=== PATIENT | female | born 1990 | race Caucasian/White ===

== ENCOUNTER 2020-04-29 14:35 | Outpatient (REF) | payer OTHER, SELFPAY ==
[2020-04-30 09:26] LABS: CT PCR NOT DETECTED (Not Detect.); NG PCR NOT DETECTED (Not Detect.)
[2020-04-30 10:04] LABS: BV Int Neg Control Negative (Negative); BV Int Pos Control Positive (Positive)
== END 2020-04-29 14:36 | disposition home or self-care (01) ==
LOC: HO.LAB 14:35
PROVIDERS: PCP Internal Medicine; Visit Provider Advanced Practice Midwife
DX: Z01.419 Encounter for gynecological examination (general) (routine) without abnormal findings (principal); Z11.3 Encounter for screening for infections with a predominantly sexual mode of transmission; Z20.2 Contact with and (suspected) exposure to infections with a predominantly sexual mode of transmission
CPT/HCPCS: 87480; 87491; 87510; 87591; 87660; 88142

== ENCOUNTER 2020-08-13 14:19 | Outpatient (REF) | payer OTHER, SELFPAY ==
[2020-08-17 14:01] LABS: Chlamydia Pneumoniae IgA <1:16 titer (<1:16); Chlamydia Pneumoniae IgG <1:64 titer (<1:64); Chlamydia Pneumoniae IgM <1:10 titer (<1:10); Chlamydia Psittaci IgA <1:16 titer (<1:16); Chlamydia Psittaci IgG <1:64 titer (<1:64); Chlamydia Psittaci IgM <1:10 titer (<1:10); Chlamydia Trachomatis IgA <1:16 titer (<1:16); Chlamydia Trachomatis IgG <1:64 titer (<1:64); Chlamydia Trachomatis IgM <1:10 titer (<1:10)
== END 2020-08-13 14:20 | disposition home or self-care (01) ==
LOC: HO.LAB 14:19
PROVIDERS: PCP Internal Medicine; Visit Provider Nurse Practitioner Family
DX: Z20.2 Contact with and (suspected) exposure to infections with a predominantly sexual mode of transmission (principal)
CPT/HCPCS: 36415; 86631; 86632

== ENCOUNTER → 2020-09-03 11:33 | Outpatient (BNVA) | payer OTHER, SELFPAY | PROVIDERS: PCP Internal Medicine; Visit Provider Advanced Practice Midwife ==

== ENCOUNTER → 2020-09-10 09:16 | Outpatient (BNVA) | payer OTHER, SELFPAY | PROVIDERS: PCP Internal Medicine; Visit Provider Advanced Practice Midwife | DX: Z30.432 Encounter for removal of intrauterine contraceptive device (principal); Z30.011 Encounter for initial prescription of contraceptive pills; F17.200 Nicotine dependence, unspecified, uncomplicated | CPT/HCPCS: 58301 ==

== ENCOUNTER → 2020-09-24 15:12 | Outpatient (BNVA) | payer OTHER, SELFPAY | PROVIDERS: PCP Internal Medicine; Visit Provider Advanced Practice Midwife ==

== ENCOUNTER 2020-11-08 10:57 | Emergency (ER) | payer OTHER, SELFPAY ==
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
[2020-11-08 11:07] VITALS: BP 134/94; BP 141/90; PULSE 80; PULSE 82; RESP 16; TEMP 37.1; O2SAT 100; O2SAT 99; BMI 20.1
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
[2020-11-08] MEDS: Acetaminophen 325 MG TABLET 650 MG PO (11:53)
--- NOTE | 2020-11-08 12:41 | PC.NURSE ---
PT EXTREMELY UPSET, CRYING WHILE WAITING FOR TESTING TO BE PERFORMED, ATIVAN ORDERED WILL MEDICATE UPON RETURN TO UNIT FROM CT SCAN
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
[2020-11-08] MEDS: LORazepam 1 MG TABLET PO (13:06)
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
[2020-11-08 14:39] VITALS: BP 106/67; PULSE 61; RESP 14; TEMP 36.5; O2SAT 99
--- NOTE | 2020-11-08 14:57 | PC.NURSE ---
CALL PLACED TO CT SCAN DEPT REQUESTING RESULTS OF NECK CT, AWAITING RETURN CALL
--- NOTE | 2020-11-08 15:13 | PC.NURSE ---
PT AGITATED RE: DELAY OF CT SCAN RESULTS, RN EXPLAINED CALL PLACED TO DEPT AWAITING RESULTS, PT GOT UP SAT AT BOTTOM OF BED AND REMOVED OWN COLLAR, Beti VALDOVINOS, GUNJAN AND THIS RN REDIRECTED PT RE: RISK OF REMOVAL PRIOR TO RESULTS,. PT WANTED TO LEAVE AMA, PT NOW STATES SHE WILL WAIT FOR RESULTS, PA UPDATED
== END 2020-11-08 15:56 | disposition home or self-care (01) ==
PROVIDERS: Emergency Provider Emergency Medicine
DX: S09.90XA Unspecified injury of head, initial encounter (principal); V43.52XA Car driver injured in collision with other type car in traffic accident, initial encounter; G89.11 Acute pain due to trauma; M54.2 Cervicalgia; M54.5 Low back pain; M25.532 Pain in left wrist; H93.93 Unspecified disorder of ear, bilateral; F41.9 Anxiety disorder, unspecified; F17.200 Nicotine dependence, unspecified, uncomplicated; Y93.89 Activity, other specified; Y92.414 Local residential or business street as the place of occurrence of the external cause; Y99.9 Unspecified external cause status
CPT/HCPCS: 70450; 72125; 73110; 99284

== ENCOUNTER → 2021-01-27 15:06 | Outpatient (BNVA) | payer OTHER, SELFPAY | PROVIDERS: PCP Internal Medicine; Visit Provider Advanced Practice Midwife ==

== ENCOUNTER → 2021-01-31 13:24 | Outpatient (BNVA) | payer OTHER, SELFPAY | PROVIDERS: Visit Provider Advanced Practice Midwife | DX: Z30.013 Encounter for initial prescription of injectable contraceptive (principal) | CPT/HCPCS: 96372; 99211 ==

== ENCOUNTER 2021-06-11 11:18 | Outpatient (REF) | payer OTHER, SELFPAY | END 2021-06-11 11:19 | disposition home or self-care (01) | LOC: HO.LNP 11:18 | PROVIDERS: Visit Provider Physician Assistant Medical | DX: N39.0 Urinary tract infection, site not specified (principal) | CPT/HCPCS: 87086 ==

== ENCOUNTER 2021-09-17 12:51 | Outpatient (REF) | payer OTHER, SELFPAY ==
[2021-09-17 16:30] LABS: CT PCR NOT DETECTED (Not Detect.); NG PCR NOT DETECTED (Not Detect.)
[2021-09-18 11:04] LABS: BV Int Neg Control Negative (Negative); BV Int Pos Control Positive (Positive)
== END 2021-09-17 12:52 | disposition home or self-care (01) ==
LOC: HO.LAB 12:51
PROVIDERS: Visit Provider Advanced Practice Midwife
DX: N76.0 Acute vaginitis (principal); B96.89 Other specified bacterial agents as the cause of diseases classified elsewhere; Z20.2 Contact with and (suspected) exposure to infections with a predominantly sexual mode of transmission
CPT/HCPCS: 87480; 87491; 87510; 87591; 87660; 99212

== ENCOUNTER 2021-09-22 14:47 | Outpatient (REF) | payer OTHER, SELFPAY ==
[2021-09-22 16:03] LABS: Syphilis Screen Nonreactive (Nonreactive)
[2021-09-23 04:15] LABS: ~HepC Num1 0.04 S/CO (0.00-0.79); ~Hepatitis C Antibody Nonreactive (Nonreactive)
[2021-09-23 04:19] LABS: HBsAGNum1 0.18 S/CO (0.00-0.99); HIV AB/AG Nonreactive (Nonreactive); HIV Num 1 0.07 S/CO (0.00-0.99); Hepatitis B Surface Antigen Negative (Negative)
== END 2021-09-22 14:48 | disposition home or self-care (01) ==
LOC: HO.LAB 14:47
PROVIDERS: PCP Internal Medicine; Visit Provider Advanced Practice Midwife
DX: Z11.4 Encounter for screening for human immunodeficiency virus [HIV] (principal); Z20.2 Contact with and (suspected) exposure to infections with a predominantly sexual mode of transmission; N76.0 Acute vaginitis; B96.89 Other specified bacterial agents as the cause of diseases classified elsewhere
CPT/HCPCS: 36415; 86780; 86803; 87340; 87389

== ENCOUNTER 2022-09-08 17:54 | Outpatient (REF) | payer OTHER, SELFPAY ==
[2022-09-08 18:59] LABS: Influenza A PCR NEGATIVE (Negative); Influenza B PCR NEGATIVE (Negative); Resp Syncy Virus RNA Qual PCR NEGATIVE (Negative); SARS COV2 PCR INHOUSE NEGATIVE (Negative)
== END 2022-09-08 17:55 | disposition home or self-care (01) ==
LOC: HO.LNP 17:54
PROVIDERS: Visit Provider Nurse Practitioner Family
DX: R09.89 Other specified symptoms and signs involving the circulatory and respiratory systems (principal); Z20.822 Contact with and (suspected) exposure to COVID-19
CPT/HCPCS: 0241U

== ENCOUNTER 2023-01-02 14:18 | Outpatient (REF) | payer OTHER, SELFPAY ==
[2023-01-02 14:39] LABS: Binax Internal Control QC Valid; Binax Now Covid-19 Ag Negative (Negative); Binax Performed by: PAULP
== END 2023-01-02 14:19 | disposition home or self-care (01) ==
LOC: HO.HMGCLDS 14:18
PROVIDERS: PCP Internal Medicine; Visit Provider Physician Assistant Medical
DX: Z20.822 Contact with and (suspected) exposure to COVID-19 (principal)
CPT/HCPCS: 87811; C9803

== ENCOUNTER 2023-02-09 12:35 | Outpatient (AMB) | payer OTHER, SELFPAY ==
--- NOTE | 2023-02-09 13:14 | MHC.OFFWIV ---
Intake Vital Signs 02/09/23 13:17 Height 5 ft 6 in BP 100/68 Blood Pressure Location Rt brachial Position Sitting Pulse 75 Pulse Source Pulse Oximeter Temp 97.2 F Temp Source Temporal Artery Scan Pulse Oximetry (%) 98 Oxygen Delivery Method Room Air Intake Visit Reasons: EST/back pain Intake Note: Pt is here c/o back pain. Pt states she was going down the stairs with a bucket of laundry when she slid down and hurt her back on Wednesday night. Patient Tobacco Use Status: Current everyday Tobacco user Allergies amoxicillin [Amoxicillin] Allergy (Unknown, Verified 02/10/23 09:21) DIARRHEA Medication List - Last Reconciled 02/10/23 by Nolan Dong MD cyclobenzaprine 10 mg PO BEDTIME meloxicam 15 mg PO DAILY ondansetron 4 mg PO TID PRN 5 days Do you need a note to return to daycare/school/sports/work: No HPI EST/back pain HPI Details Patient presents to the office for a sick visit. Complaining of lower back pain for the past week. No history of fall or trauma prior to the onset of symptoms. No urinary incontinence. No fevers or chills. Pain is worse on bending forwards or sideways. Relieve done sitting down. Pain is radiating into the gluteal area. 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 no paraspinal spasm. Back: no CVA tenderness Assessment & Plan Assessment & Plan (1) Low back pain: Code(s): M54.50 - Low back pain, unspecified Plan: Meloxicam and cyclobenzaprine called in. Toradol injection provided. Patient was advised rest. Note for work if necessary provided. Once pain symptoms subside, patient should start physical therapy. If symptoms worsen to follow-up here. Medications: New meloxicam 15 mg PO DAILY 14 tabs 0RF cyclobenzaprine 10 mg PO BEDTIME 14 tabs 0RF Coding Level of Care Code Est Pt Level 3 (12155) Diagnoses Low back pain M54.50
[2023-02-09 13:17] VITALS: BP 100/68; PULSE 75; TEMP 36.2; O2SAT 98
== END 2023-02-09 16:11 | disposition home or self-care (01) ==
PROVIDERS: PCP Internal Medicine; Visit Provider Internal Medicine
DX: M54.50 Low back pain, unspecified (principal)
CPT/HCPCS: 99213

== ENCOUNTER 2024-05-04 11:41 | Outpatient (AMB) | payer OTHER, SELFPAY ==
--- NOTE | 2024-05-04 11:47 | AM.OFFWIN_ITS ---
Intake Vital Signs 05/04/24 11:49 Height 5 ft 6 in Weight 126 lb BMI 20.3 BP 100/60 Blood Pressure Location Rt brachial Position Sitting Pulse 83 Pulse Source Pulse Oximeter Temp 98.0 F Temp Source Oral Pulse Oximetry (%) 98 Oxygen Delivery Method Room Air Intake Visit Reasons: EP coughing, sore throat, neck pain Intake Note: Patient here for cough, chest tightness, vomiting and diarrhea which all started yesterday. Patient Tobacco Use Status: Current everyday Tobacco user Allergies amoxicillin [Amoxicillin] Allergy (Unknown, Verified 05/04/24 11:49) DIARRHEA Do you need a note to return to daycare/school/sports/work: No HPI EP coughing, sore throat, neck pain HPI Details This note is constructed using voice recognition software. While every effort has been made to ensure accuracy, first assistant manager errors may have been included. The patient is a 33 year old female who presents to the clinic today with cough, body aches, and diarrhea for the past 2 days, with fever. She reports that her mother has been sick with similar symptoms, and she develop them 2 days ago. She has taken Mucinex to help the symptoms but she does not have any Tylenol or Motrin at home. She reports when she is coughing she is getting up thin clear secretions. She denies dyspnea. 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 Gender identity: Female Female Reproductive History Menstrual Age of Menarche: 13 Review of Systems Const All systems reviewed & are unremarkable except as noted in HPI and below Physical Exam Vital Signs: Last Vital Signs Temp 98.0 F 05/04/24 11:49 Pulse 83 05/04/24 11:49 BP 100/60 05/04/24 11:49 Pulse Ox 98 05/04/24 11:49 Oxygen Delivery Method Room Air 05/04/24 11:49 BMI result Body Mass Index 20.3 Const General: cooperative, healthy appearing, comfortable and no acute distress Orientation/consciousness: patient oriented x3 Limitations: no limitations HEENT Head: Yes normal to inspection Ears: hearing grossly normal bilaterally, external ears normal and TM's normal bilaterally General nose exam: Normal external nose present, Normal nares present and No nasal discharge present Face and sinus: Yes normal facial exam and Yes sinuses nontender Mouth: Normal oral and palatal mucosa present and moist mucous membranes Throat: Yes tonsils normal, Yes uvula midline and Yes posterior oropharynx abnormal (Erythema) Eyes General: appearance normal, both eyes and all related structures Neck Neck: Yes normal visual inspection Resp Effort & Inspection: normal respiratory effort, able to speak in complete sentences, Actively coughing, no respiratory distress, not tachypneic, no tripod positioning and no use of accessory muscles Auscultation: clear to auscultation bilaterally Cardio Jugular venous distension: no JVD Rate: regular rate Rhythm: regular rhythm Heart sounds: S1 normal heart sound present, S2 normal heart sound present, no click, no gallops, no murmurs and no rubs GI Inspection: Yes normal to inspection Palpation (GI): Soft to palpation and nontender Auscultation: normal bowel sounds Skin General skin exam: no rashes or lesions noted, elasticity normal and turgor normal Neuro General: patient oriented x3 Extrem General: Yes normal to inspection and Yes no clubbing, cyanosis or edema Assessment & Plan Assessment & Plan (1) URI (upper respiratory infection): Code(s): J06.9 - Acute upper respiratory infection, unspecified Qualifiers: URI type: unspecified URI Qualified Code(s): J06.9 - Acute upper respiratory infection, unspecified Plan: Viral swab obtained to rule out Covid based on symptoms. Advised mask wearing while symptomatic and quarantine per current CDC guidelines. Reviewed at home support methods including hydration, humidification, vix vapor rub, sinus rinse. Discussed treatment with antiviral therapy for covid with paxlovid including appropriate use and side effects, and need to start medication within 5 day of symptom onset, preferably within 48 hours of symptom onset. Patient wishes to decline paxlovid. Given diarrhea, advised patient to increase hydration methods. Advised follow up with worsening symptoms such as dyspnea at rest, which would require emergent evaluation. Plan See above for full details and plan. Orders: Orders SARS-CoV2/FLU/RSV Today J06.9 - Acute upper respiratory infection, unspecified Medications: New albuterol sulfate 90 mcg/actuation 1 - 2 puffs inhalation QID PRN 6.7 grams 0RF Shortness Of Breath Or Wheezing ibuprofen 400 mg PO Q8H PRN 20 tabs 0RF pain Coding Level of Care Code Est Pt Level 3 (25561) Diagnoses Upper respiratory tract infection, unspecified type J06.9 URI type: unspecified URI
[2024-05-04 11:49] VITALS: BP 100/60; PULSE 83; TEMP 36.7; O2SAT 98; BMI 20.3
== END 2024-05-04 12:59 | disposition home or self-care (01) ==
PROVIDERS: PCP Internal Medicine; Visit Provider Registered Nurse
DX: J06.9 Acute upper respiratory infection, unspecified (principal)

== ENCOUNTER 2024-05-04 11:41 | Outpatient (REF) | payer OTHER, SELFPAY ==
[2024-05-04 14:13] LABS: Influenza A PCR NEGATIVE (Negative); Influenza B PCR NEGATIVE (Negative); Resp Syncy Virus RNA Qual PCR NEGATIVE (Negative); SARS COV2 PCR INHOUSE NEGATIVE (Negative)
== END 2024-05-04 11:42 | disposition home or self-care (01) ==
LOC: HO.LNP 11:41
PROVIDERS: PCP Internal Medicine; Visit Provider Registered Nurse
DX: J06.9 Acute upper respiratory infection, unspecified (principal); R05.9 Cough, unspecified; J02.9 Acute pharyngitis, unspecified; M54.2 Cervicalgia; R07.89 Other chest pain; R11.10 Vomiting, unspecified; R19.7 Diarrhea, unspecified; F17.210 Nicotine dependence, cigarettes, uncomplicated
CPT/HCPCS: 0241U; 99212

== ENCOUNTER → 2024-05-17 11:12 | Outpatient (BNVA) | payer OTHER, SELFPAY | PROVIDERS: PCP Internal Medicine | DX: T14.8XXA Other injury of unspecified body region, initial encounter (principal); M25.511 Pain in right shoulder; M25.512 Pain in left shoulder; V87.7XXA Person injured in collision between other specified motor vehicles (traffic), initial encounter; M54.50 Low back pain, unspecified; M54.2 Cervicalgia | CPT/HCPCS: 99212 ==

== ENCOUNTER 2024-05-17 13:38 | Outpatient (AMB) | payer OTHER, SELFPAY ==
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
[2024-05-17 14:57] VITALS: BP 100/60; PULSE 60; O2SAT 98
== END 2024-05-17 15:07 | disposition home or self-care (01) ==
PROVIDERS: PCP Internal Medicine; Visit Provider Registered Nurse
DX: T14.8XXA Other injury of unspecified body region, initial encounter (principal); V87.7XXA Person injured in collision between other specified motor vehicles (traffic), initial encounter; Z04.3 Encounter for examination and observation following other accident

== ENCOUNTER 2024-08-29 12:59 | Emergency (ER) | payer OTHER, SELFPAY ==
--- NOTE | ~2024-08-29 | XR_ITS ---
EXAMINATION: XR CHEST CLINICAL INFORMATION: CP COMPARISON: None available. TECHNIQUE: 2 views of the chest were obtained. FINDINGS: The cardiac, hilar, and mediastinal contours are normal. The lungs are clear bilaterally. There is no pneumothorax or pleural effusion. There is no focal osseous or soft tissue abnormality. XR/XR chest 2V IMPRESSION: Normal chest. Electronically signed by: Jose Armando Gracia MD 08/29/2024 02:50 PM EST
--- NOTE | 2024-08-29 13:02 | ECG_ITS ---
Test Reason : chest pain Blood Pressure : */* mmHG Vent. Rate : 82 BPM Atrial Rate : 82 BPM P-R Int : 170 ms QRS Dur : 76 ms QT Int : 356 ms P-R-T Axes : 70 73 48 degrees QTcB Int : 415 ms Normal sinus rhythm Possible Left atrial enlargement Cannot rule out Anterior infarct , age undetermined Abnormal ECG When compared with ECG of 04-Nov-2008 21:28, No significant changes seen Referred By: Generic ED Physician Electronically Signed By: JOSE ELIAS ELIZALDE
[2024-08-29 13:48] VITALS: BP 134/90; PULSE 83; RESP 16; TEMP 36.9; O2SAT 100; BMI 19.6
--- NOTE | 2024-08-29 13:49 | ED.CHESTPAIN ---
HPI - Chest Pain General Chief Complaint: Chest Pain Stated Complaint: Chest Pain Related Data Previous Rx's ?Medication ?Instructions ?Recorded albuterol sulfate 90 mcg/actuation 1 - 2 puff inhalation QID PRN 05/04/24 aerosol inhaler Shortness Of Breath Or Wheezing #6.7 grams ibuprofen 400 mg tablet 400 mg PO Q8H PRN pain #20 tabs 05/04/24 cyclobenzaprine 5 mg tablet 5 mg PO Q8H PRN Muscle Spasm #10 05/17/24 tabs ibuprofen 600 mg tablet 600 mg PO Q8H PRN pain #20 tabs 05/17/24 Allergies Allergy/AdvReac Type Severity Reaction Status Date / Time amoxicillin [Amoxicillin] Allergy Unknown DIARRHEA Verified 08/29/24 13:50 PMFSH Past Medical History Medical History Depression Smoking Surgical History No pertinent past surgical history Family History Family History Maternal Aunt Ovarian cancer Maternal Grandmother Cancer Maternal Grandfather Diabetes Social History Social History Housing: Apartment Alcohol intake: current Alcohol intake frequency: holidays/special occasions only Patient Tobacco Use Status: Current everyday Tobacco user Cigarettes Per Day: 4 e-Cigarette/Vaping Use: Never Used Second Hand Smoke Exposure: Yes Advance Directives: No Advance Directives Information Provided: No Do you have a plan to hurt others: No Plan service: No Current occupational status: employed 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 RME assessment and note performed by: Elvia Agarwal PA-C This is a [id number], with no known medical problems, here with complaints of chest pain x 2 days. Pain is constant and radiates into her left shoulder. Brother from ACS in his 30s. She is not on anticoagulation. No recent travel, surgery, or hospitalizations. Plan: Labs, EKG, chest x-ray, further ER evaluation needed. Reevaluation(s) Reevaluation #1: Patient left without completing treatment. Medical Decision Making Lab Data 08/29/24 14:26 08/29/24 14:26 Labs: Lab Results 08/29/24 Range/Units 14:26 WBC 4.7 L (4.8-10.8) X10*3/uL RBC 3.92 L (4.20-5.50) X10*6/uL Hgb 12.6 (12.0-16.0) g/dl Hct 37.6 (37.0-47.0) % MCV 95.9 (80.0-98.0) fL MCH 32.1 (27.0-33.0) pg MCHC 33.5 (31.0-35.0) g/dl RDW 12.3 (11.0-16.0) % Plt Count 185 (160-400) X10*3/uL MPV 10.1 (9.4-12.3) fL Immature Gran % (Auto) 0.0 (0.0-0.4) % Neut % (Auto) 54.3 (45-73) % Lymph % (Auto) 32.3 (20-40) % Bertie % (Auto) 11.5 H (2-11) % Eos % (Auto) 1.7 (0-4) % Baso % (Auto) 0.2 (0-2) % Lymph # (Auto) 1.5 (1.2-4.9) X10*3/uL Bertie # (Auto) 0.5 (0.1-1.2) X10*3/uL Eos # (Auto) 0.1 (0.0-0.4) X10*3/uL Baso # (Auto) 0.0 (0.0-0.2) X10*3/uL Abs Immat Gran (auto) 0.00 (0.00-0.03) X10*3/uL Absolute Neuts (auto) 2.6 (2.0-8.3) x10*3/uL Absolute Nucleated RBC 0.000 (0.0-0.012) X10*3/uL Nucleated RBC % (auto) 0.0 (0.0-0.2) /100WBC PT 11.8 (10.9-12.4) SEC INR 1.0 (0.9-1.1) Sodium 141 (135-145) mmol/L Potassium 3.5 (3.3-5.1) mmol/L Chloride 108 (96-108) mmol/L Carbon Dioxide 27 (22-29) mmol/L Anion Gap 10 L (12-20) BUN 11 (9-16) mg/dL Creatinine 0.73 (0.5-1.4) mg/dL Estim Creat Clear Calc 99.9 Estimated GFR > 60 Random Glucose 79 (60-115) mg/dL Calcium 9.3 (8.4-10.2) mg/dL Magnesium 1.9 (1.6-2.6) mg/dL Total Bilirubin 0.5 (0.0-1.0) mg/dL Direct Bilirubin 0.1 (0.0-0.5) mg/dL AST 21 (5-31) U/L ALT 21 (0-31) U/L Alkaline Phosphatase 68 (39-117) U/L Troponin I High Sens < 2.7 (<3.5-17.0) ng/L Total Protein 7.6 (6.5-8.0) g/dL Albumin 4.5 (3.5-5.0) g/dL Influenza Type A (PCR) NEGATIVE (Negative) Influenza Type B (PCR) NEGATIVE (Negative) RSV RNA Qual (PCR) NEGATIVE (Negative) SARS-CoV-2 RNA (RT-PCR) NEGATIVE (Negative) Discharge Plan Discharge Clinical Impression: Chest pain Patient Disposition: Left W/O Completing Treatment Prescriptions: No Action Recombivax HB (PF) 10 mcg/mL suspension 1.0 ml IM ONCE Qty: 1 0RF albuterol sulfate 90 mcg/actuation HFA aerosol inhaler 1 - 2 puff inhalation QID PRN (Reason: Shortness Of Breath Or Wheezing) Qty: 6.7 0RF ibuprofen 400 mg tablet 400 mg PO Q8H PRN (Reason: pain) Qty: 20 0RF cyclobenzaprine 5 mg tablet 5 mg PO Q8H PRN (Reason: Muscle Spasm) Qty: 10 0RF ibuprofen 600 mg tablet 600 mg PO Q8H PRN (Reason: pain) Qty: 20 0RF Discharge Date/Time: 08/29/24 20:07
[2024-08-29 14:33] LABS: MANUAL DIFF FLAG NO
[2024-08-29 14:34] LABS: Basophils Percent Auto 0.2 % (0-2); Eosinophils Absolute Auto 0.1 X10*3/uL (0.0-0.4); Eosinophils Percent Auto 1.7 % (0-4); Hematocrit 37.6 % (37.0-47.0); Hemoglobin 12.6 g/dl (12.0-16.0); Lymphocytes Absolute Auto 1.5 X10*3/uL (1.2-4.9); Lymphocytes Percent Auto 32.3 % (20-40); Mean Corpuscular HGB Conc 33.5 g/dl (31.0-35.0); Mean Corpuscular Hemoglobin 32.1 pg (27.0-33.0); Mean Corpuscular Volume 95.9 fL (80.0-98.0); Mean Platelet Volume 10.1 fL (9.4-12.3); Monocytes Absolute Auto 0.5 X10*3/uL (0.1-1.2); Monocytes Percent Auto 11.5 % (2-11); Neutrophils Absolute Auto 2.6 x10*3/uL (2.0-8.3); Neutrophils Percent Auto 54.3 % (45-73); Platelet Count 185 X10*3/uL (160-400); Red Blood Count 3.92 X10*6/uL (4.20-5.50); Red Cell Distribution Width 12.3 % (11.0-16.0); White Blood Count 4.7 X10*3/uL (4.8-10.8)
[2024-08-29 14:44] LABS: Prothrombin Time 11.8 SEC (10.9-12.4)
[2024-08-29 14:52] LABS: Alanine Aminotransferase 21 U/L (0-31); Albumin Level 4.5 g/dL (3.5-5.0); Alkaline Phosphatase 68 U/L (39-117); Anion Gap 10 (12-20); Aspartate Amino Transferase 21 U/L (5-31); Bilirubin Direct 0.1 mg/dL (0.0-0.5); Bilirubin Total 0.5 mg/dL (0.0-1.0); Blood Urea Nitrogen 11 mg/dL (9-16); Calcium 9.3 mg/dL (8.4-10.2); Carbon Dioxide 27 mmol/L (22-29); Chloride 108 mmol/L (96-108); Creatinine Clr Calc Pharmacy 99.9; Estimated Glomerular Filt Rate > 60; Glucose Random 79 mg/dL (60-115); Magnesium 1.9 mg/dL (1.6-2.6); Potassium 3.5 mmol/L (3.3-5.1); Sodium 141 mmol/L (135-145); Total Protein 7.6 g/dL (6.5-8.0)
[2024-08-29 15:00] LABS: Troponin-I High Sensitivity < 2.7 ng/L (<3.5-17.0)
[2024-08-29 15:14] LABS: Influenza A PCR NEGATIVE (Negative); Influenza B PCR NEGATIVE (Negative); Resp Syncy Virus RNA Qual PCR NEGATIVE (Negative); SARS COV2 PCR INHOUSE NEGATIVE (Negative)
[2024-08-29 17:33] VITALS: BP 107/70; PULSE 72; RESP 20; TEMP 36.8; O2SAT 100
--- OUTSIDE RECORDS SUMMARY | 2024-08-29 19:58 | XMS_ITS | Encounter Summary ---
Author Organization [facility] Address [address] [place] [address] Phone Care Team Providers Care Evaporator Supervisor Name Role Phone Elisha Dunaway DO Primary Care Provider [phone] Encounter Details Date Type Department Care Team (Late st Contact Info) Description 04/08/2011 Documentation EM Family Medicine [address] [place] [address] Family Medicine, Physician [address] [place], [place] [phone] Social History Tobacco Use Types Packs/Day Years Used Date Smoking Tobacco: Never Assessed Comments Unknown Sex and Gender Information Value Date Recorded Sex Assigned at Not on file Legal Sex Female 4:39 PM EDT Gender Identity Not on file Sexual Orientation Not on file documented as of this encounter Plan of Treatment Not on file documented as of this encounter Visit Diagnoses Not on filedocumented in this encounter Care Teams Evaporator Supervisor Relationship Specialty Start Date End Date Elisha Dunaway DO [address] [facility] [place] [phone] PCP - General 02/19/17 10/21/22 documented as of this encounter
--- OUTSIDE RECORDS SUMMARY | 2024-08-29 19:58 | XMS_ITS | Encounter Summary ---
Author Organization [facility] Address [address] [place] [address] Phone Care Team Providers Care Sod Stripper Name Role Phone Elisha Dunaway DO Primary Care Provider [phone] Encounter Details Date Type Department Care Team (Late st Contact Info) Description 05/14/2011 Documentation EM Family Medicine [address] [place] [address] Family Medicine, Physician [address] [place], [place] [phone] Social History Tobacco Use Types Packs/Day Years [...] on filedocumented in this encounter Care Teams Sod Stripper Relationship Specialty Start Date End Date Elisha Dunaway DO [address] [facility] [place] [id number] PCP - General 02/19/17 10/21/22 documented as of this encounter
--- OUTSIDE RECORDS SUMMARY | 2024-08-29 19:58 | XMS_ITS | Clinical Summary ---
Author Organization [facility] Address [address] [place] [address] Phone Care Team Providers Care Trains Dispatcher Supervisor Name Role Phone Unavailable Primary Care Provider Unavailabl e Immunizations Immunization Administration Dates Next Due DTP 11/08/1994, 4,07/11/1993, 993 DTaP 5 12/09/1997 HPV, Quadrivalent 04/07/2011,04/21/2007 Hep B, ped/adol 07/11/1993,01/08/1993,1992 Hib (PRP-T) 11/08/1994,07/11/1993,01/08/1993 IPV 12/09/1997, 4,07/11/1993, 993 MMR 12/09/1997,02/08/1994 Meningococcal Conj (Menactra) MCV4P 04/21/2007 Tdap 07/03/2005 Varicella 04/07/2011,09/11/2002 Social History Tobacco Use Types Packs/Day Years Used Date Smoking Tobacco: Never Assessed Comments Unknown Sex and Gender Information Value Date Recorded Sex Assigned at Not on file Legal Sex Female 4:39 PM EDT Gender Identity Not on file Sexual Orientation Not on file Last Filed Vital Signs Vital Sign Reading Time Taken Comments Blood Pressure 82/60 04/07/2011 12:00 AM EDT Pulse 72 04/07/2011 12:00 AM EDT Temperature 37.8 ??C (100.1 ??F) 12/19/2010 12:00 AM EDT Respiratory Rate - - Oxygen Saturation - - Inhaled Oxygen Concentration - - Weight 49.4 kg (109 lb) 04/07/2011 12:00 AM EDT Height 166.4 cm (5' 5.5 ) 04/07/2011 12:00 AM ED T Body Mass Index 17.86 04/07/2011 12:00 AM EDT Plan of Treatment Health Maintenance Due Date Last Done Comments Consider Men B Vaccine (1 of 2 - Bexsero 2-dose series) 2008 DTaP,Tdap,and Td Vaccines (7 - Td or Tdap) 07/03/2015 07/03/2005, 12/09/1997, 11/08/1994, Additional history exists Influenza Vaccines (#1) 2024 COVID-19 Vaccine ( season) 2024 Hepatitis B Vaccines Completed 07/11/1993, 01/08/1993, 1992 HIB Vaccines Completed 11/08/1994, 06/13, 01/08/1993 IPV Vaccines Completed 12/09/1997, 01/11, 07/11/1993, Additional history exists MMR Vaccines Completed 12/09/1997, 02/08/1994 Meningococcal Vaccine Aged Out 04/21/2007 No tavon zach eligible based on patient's age to complete this topic HPV Vaccines Completed 04/07/2011, 04/21/2007 Varicella Vaccines Completed 04/07/2011, 09/11/2002 Hepatitis A Vaccines Aged Out No long er eligible based on patient's age to complete this topic Men B Vaccine Aged Out No longer elig ible based on patient's age to complete this topic Pneumococcal Vaccine Aged Out No long er eligible based on patient's age to complete this topic Procedures * Due to [place] [employer] law, this organization might not be sharing sensitive test results. Procedure Name Priority Date/Time Associated Diagnosis Comments CHLAMYDIA AND GONORRHEA, AMPLIFIED Routine 04/08/2011 2:22 PM EDT from Last 3 Months or Most Recently Relevant to Health Maintenance Results * Due to [place] [employer] law, this organization might not be sharing sensitive test results. * Chlamydia and Gonorrhoea, Amplified (04/08/2011 2:22 PM EDT) Pathologist [facility] URINE GC AMP PROBE NEGATIVE [facility] Comment: NO NEISSERIA GONORRHOEAE RNA DETECTED IN THIS PATIENT'S SAMPLE. ? (REFERENCE RANGE/NORMAL VALUE: NOT DETECTED) ? NOTE: THIS TEST USES PROOF CARRIER MEDIATED AMPLIFICATION METHOD TO DETECT rRNA FROM C.TRACHOMATIS AND N.GONORRHOEAE. A NEGATIVE RESULT DOES NOT PRECLUDE INFECTION WITH C.TRACHOMATIS OR N.GONORRHOEAE BECAUSE RESULTS ARE DEPENDENT ON ADEQUATE SPECIMEN COLLECTION, ABSENCE OF INHIBITORS, AND SUFFICIENT rRNA TO BE DETECTED. THE APTIMA COMBO2 ASSAY IS NOT INTENDED FOR THE EVALUATION OF SUSPECTED SEXUAL ABUSE OR FOR OTHER MEDICO LEGAL INDICATIONS. IS TRUE FOR ALL NON CULTURE METHODS, A POSITIVE SPECIMEN OBTAINED FROM A PATIENT AFTER THERAPEUTIC TREATMENT CANNOT BE INTERPRETED INDICATING THE PRESENCE OF VIABLE C.TRACHOMATIS OR N.GONORRHOEAE. THERAPEUTIC FAILURE OR SUCCESS CANNOT BE DETERMINED WITH THE APTIMA COMBO2 ASSAY SINCE NUCLEIC ACID MAY PERSIST FOLLOWING APPROPRIATE ANTIMICROBIAL THERAPY. A NEGATIVE URINE RESULT FOR A PATIENT WHO IS CLINICALLY SUSPECTED OF HAVING A CHLAMYDIAL OR GONOCOCCAL INFECTION DOES NOT RULE OUT THE PRESENCE OF C.TRACHOMATIS OR N.GONORRHOEAE IN THE UROGENITAL TRACT. TESTING OF AN ENDOCERVICAL(FEMALE) OR URETHRAL(MALE) SPECIMEN IS RECOMMENDED IF THERE IS HIGH CLINICAL SUSPICION OF INFECTION. PRESERVCYT LIQUID PAP AND URINE SAMPLING ARE NOT DESIGNED TO REPLACE CERVICAL EXAMS AND ENDOCERVICAL SAMPLES FOR DIAGNOSIS OF FEMALE UROGENITAL INFECTIONS. PATIENTS MAY HAVE CERVICITIS, URETHRITIS, URINARY TRACT INFECTIONS, OR VAGINAL INFECTIONS DUE TO OTHER CAUSES OR CONCURRENT INFECTIONS WITH OTHER AGENTS. URINE CHLAMYDIA AMP PROBE NEGATIVE [facility] Comment: NO CHLAMYDIA TRACHOMATIS RNA DETECTED IN THIS PATIENT'S SAMPLE. ? (REFERENCE RANGE/NORMAL VALUE: NOT DETECTED) 04/08/2011 2:22 PM EDT Narrative [facility] - 04/08/2011 2:22 PM EDT URINE CHLAMYDIA GC AMP PROBE us Elisha Dunaway DO LAB MICROBIOLOGY - GENERAL ORDER JOHN Final Result [facility] [address] [place] [address], [place] from Last 3 Months or Most Recently Relevant to Health Maintenance
--- OUTSIDE RECORDS SUMMARY | 2024-08-29 19:58 | XMS_ITS | Encounter Summary ---
Author Organization [facility] Address [address] [place] [address] Phone Care Team Providers Care Cardroom Supervisor Name Role Phone Elisha Dunaway DO Primary Care Provider [phone] Encounter Details Date Type Department Care Team (Late st Contact Info) Description 04/08/2011 Documentation EM Family Medicine [address] [place] [address] Family Medicine, Physician [address] [place], [place] [phone] Social History Tobacco Use Types Packs/Day Years [...] on filedocumented in this encounter Care Teams Cardroom Supervisor Relationship Specialty Start Date End Date Elisha Dunaway DO [address] [facility] [place] [phone] PCP - General 02/19/17 10/21/22 documented as of this encounter
--- OUTSIDE RECORDS SUMMARY | 2024-08-29 19:58 | XMS_ITS | Encounter Summary ---
Author Organization [facility] Address [address] [place] [address] Phone Care Team Providers Care Radiology Manager Name Role Phone Elisha Dunaway DO Primary Care Provider [phone] Encounter Details Date Type Department Care Team (Late st Contact Info) Description 02/25/2017 Conversion Encounter [facility] [address] [place], [place] [phone] Social History Tobacco Use Types Packs/Day Years [...] on filedocumented in this encounter Care Teams Radiology Manager Relationship Specialty Start Date End Date Elisha Dunaway DO [address] [place] [address] PCP - General 02/19/17 10/21/22 documented as of this encounter
--- OUTSIDE RECORDS SUMMARY | 2024-08-29 19:58 | XMS_ITS | Encounter Summary ---
Author Organization [facility] Address [address] [place] [address] Phone Care Team Providers Care Hospital Cleaning Specialist Name Role Phone Elisha Dunaway DO Primary Care Provider [phone] Encounter Details Date Type Department Care Team (Late st Contact Info) Description 04/08/2011 Documentation EM Family Medicine [address] [place] [address] Family Medicine, Physician [address] [place], [place] [phone] Social History Tobacco Use Types Packs/Day Years [...] on filedocumented in this encounter Care Teams Hospital Cleaning Specialist Relationship Specialty Start Date End Date Elisha Dunaway DO [address] [facility] [place] [phone] PCP - General 02/19/17 10/21/22 documented as of this encounter
--- OUTSIDE RECORDS SUMMARY | 2024-08-29 19:58 | XMS_ITS | Encounter Summary ---
Author Organization [facility] Address [address] [place] [address] Phone Care Team Providers Care Histotechnologist Supervisor Name Role Phone Elisha Dunaway DO Primary Care Provider [phone] Encounter Details Date Type Department Care Team (Late st Contact Info) Description 10/03/2009 Documentation EM Family Medicine [address] [place] [address] Family Medicine, Physician [address] [place], [place] [phone] Social History Tobacco Use Types Packs/Day Years [...] on filedocumented in this encounter Care Teams Histotechnologist Supervisor Relationship Specialty Start Date End Date Elisha Dunaway DO [address] [facility] [place] [phone] PCP - General 02/19/17 10/21/22 documented as of this encounter
== END 2024-08-29 20:07 | disposition left against medical advice (07) ==
PROVIDERS: Physician Assistant Medical; Emergency Provider Emergency Medicine; PCP Internal Medicine
DX: R07.9 Chest pain, unspecified (principal); Z03.818 Encounter for observation for suspected exposure to other biological agents ruled out; F17.210 Nicotine dependence, cigarettes, uncomplicated
CPT/HCPCS: 0241U; 71046; 80048; 80076; 83735; 84484; 85025; 85610; 93005; 99283

== ENCOUNTER → 2024-08-29 13:02 | Outpatient (BNV) | payer OTHER, SELFPAY | PROVIDERS: PCP Internal Medicine; Visit Provider Internal Medicine | DX: R94.31 Abnormal electrocardiogram [ECG] [EKG] (principal); R07.9 Chest pain, unspecified | CPT/HCPCS: 93010 ==

== ENCOUNTER → 2024-08-29 13:52 | Outpatient (BNV) | payer OTHER, SELFPAY | PROVIDERS: PCP Internal Medicine; Visit Provider Radiology Diagnostic Radiology | DX: R07.9 Chest pain, unspecified (principal) | CPT/HCPCS: 71046 ==

== ENCOUNTER 2024-09-20 12:50 | Outpatient (AMB) | payer OTHER, SELFPAY ==
--- NOTE | 2024-09-20 13:09 | AM.OFFVISNUR ---
Intake Visit Reasons: PPD Plant Allergies amoxicillin [Amoxicillin] Allergy (Unknown, Verified 08/29/24 13:50) DIARRHEA Office Meds tuberculin PPD 5 tub. unit/0.1 mL intradermal injection solution Performing Provider: Gena Whyte MD [facility] Administered by: Dora Eller RN on 09/20/24 13:09 Dose Route Admin Location Dispensed Lot Number Expiration Date [facility] Visual Designer 0.1 mL intradermal 0.1 mL [id number] 12/09/26 39920-439-29 [employer] Assessment & Plan Assessment & Plan Orders: Orders AMB PPD Planted Today Z11.1 - Encounter for screening for respiratory tuberculosis Medications: New tuberculin PPD 0.1 mL intradermal ONCE 0.1 mL 0RF Z11.1 - Encounter for screening for respiratory tuberculosis Coding
--- OUTSIDE RECORDS SUMMARY | 2024-09-20 14:53 | XMS_ITS | Encounter Summary ---
Author Organization [facility] Address [address] [place] [address] Phone Care Team Providers Care Tester Rocket Engine Name Role Phone Elisha Dunaway DO Primary Care Provider [phone] Encounter Details Date Type Department Care Team (Late st Contact Info) Description 10/03/2009 Documentation EM Family Medicine [address] [place] [address] Family Medicine, Physician [address] [place], [place] [phone] Social History Tobacco Use Types Packs/Day Years [...] on filedocumented in this encounter Care Teams Tester Rocket Engine Relationship Specialty Start Date End Date Elisha Dunaway DO [address] [facility] [place] [phone] PCP - General 02/19/17 10/21/22 documented as of this encounter
--- OUTSIDE RECORDS SUMMARY | 2024-09-20 14:53 | XMS_ITS | Clinical Summary ---
Author Organization [facility] Address [address] [place] [address] Phone Care Team Providers Care Division Superintendent Name Role Phone Unavailable Primary Care Provider [...] Health Maintenance Due Date Last Done Comments DTaP,Tdap,and Td Vaccines (7 - Td or [...] complete this topic Procedures * Due to [place] [employer] law, this organization might not be sharing sensitive test results. Procedure Name Priority Date/Time Associated Diagnosis Comments CHLAMYDIA AND GONORRHEA, AMPLIFIED Routine 04/08/2011 2:22 PM EDT from Last 3 Months or Most Recently Relevant to Health Maintenance Results * Due to [place] [employer] law, this organization might not be sharing sensitive test results. * Chlamydia and Gonorrhoea, Amplified (04/08/2011 2:22 PM EDT) Pathologist [facility] URINE GC AMP PROBE NEGATIVE [facility] Comment: NO NEISSERIA GONORRHOEAE RNA DETECTED IN THIS PATIENT'S SAMPLE. ? (REFERENCE RANGE/NORMAL VALUE: NOT DETECTED) ? NOTE: THIS TEST USES DIRECTOR OF DEVELOPMENT MEDIATED AMPLIFICATION METHOD TO DETECT rRNA FROM [...] OTHER AGENTS. URINE CHLAMYDIA AMP PROBE NEGATIVE [facility] Comment: NO CHLAMYDIA TRACHOMATIS RNA DETECTED IN THIS PATIENT'S SAMPLE. ? (REFERENCE RANGE/NORMAL VALUE: NOT DETECTED) 04/08/2011 2:22 PM EDT Narrative [facility] - 04/08/2011 2:22 PM EDT URINE CHLAMYDIA GC AMP PROBE us Elisha Dunaway DO LAB MICROBIOLOGY - GENERAL ORDER JOHN Final Result [facility] [address] [place] [address], [place] from Last 3 Months or Most Recently Relevant to Health Maintenance
--- OUTSIDE RECORDS SUMMARY | 2024-09-20 14:53 | XMS_ITS | Encounter Summary ---
Author Organization [facility] Address [address] [place] [address] Phone Care Team Providers Care Prenatal Teacher Name Role Phone Elisha Dunaway DO Primary Care Provider [phone] Encounter Details Date Type Department Care Team (Late st Contact Info) Description 04/08/2011 Documentation EM Family Medicine [address] [place] [address] Family Medicine, Physician [address] [place], [place] [phone] Social History Tobacco Use Types Packs/Day Years [...] on filedocumented in this encounter Care Teams Prenatal Teacher Relationship Specialty Start Date End Date Elisha Dunaway DO 150 [facility] [place] [address] PCP - General 02/19/17 10/21/22 documented as of this encounter
--- OUTSIDE RECORDS SUMMARY | 2024-09-20 14:53 | XMS_ITS | Encounter Summary ---
Author Organization [facility] Address [address] [place] [address] Phone Care Team Providers Care Pretzel Twister Name Role Phone Elisha Dunaway DO Primary Care Provider [phone] Encounter Details Date Type Department Care Team (Late st Contact Info) Description 05/14/2011 Documentation EM Family Medicine [address] [place] [address] Family Medicine, Physician [address] [place], [place] [phone] Social History Tobacco Use Types Packs/Day Years [...] on filedocumented in this encounter Care Teams Pretzel Twister Relationship Specialty Start Date End Date Elisha Dunaway DO 150 [facility] [place] [address] PCP - General 02/19/17 10/21/22 documented as of this encounter
--- OUTSIDE RECORDS SUMMARY | 2024-09-20 14:53 | XMS_ITS | Encounter Summary ---
Author Organization [facility] Address [address] [place] [address] Phone Care Team Providers Care Paralegal Supervisor Name Role Phone Elisha Dunaway DO Primary Care Provider [phone] Encounter Details Date Type Department Care Team (Late st Contact Info) Description 04/08/2011 Documentation EM Family Medicine [address] [place] [address] Family Medicine, Physician [address] [place], [place] [phone] Social History Tobacco Use Types Packs/Day Years [...] on filedocumented in this encounter Care Teams Paralegal Supervisor Relationship Specialty Start Date End Date Elisha Dunaway DO 150 [facility] [place] [address] PCP - General 02/19/17 10/21/22 documented as of this encounter
--- OUTSIDE RECORDS SUMMARY | 2024-09-20 14:53 | XMS_ITS | Encounter Summary ---
Author Organization [facility] Address [address] [place] [address] Phone Care Team Providers Care Assistant Hairstylist Name Role Phone Elisha Dunaway DO Primary Care Provider [phone] Encounter Details Date Type Department Care Team (Late st Contact Info) Description 04/08/2011 Documentation EM Family Medicine [address] [place] [address] Family Medicine, Physician [address] [place], [place] [phone] Social History Tobacco Use Types Packs/Day Years [...] on filedocumented in this encounter Care Teams Assistant Hairstylist Relationship Specialty Start Date End Date Elisha Dunaway DO 150 [facility] [place] [address] PCP - General 02/19/17 10/21/22 documented as of this encounter
--- OUTSIDE RECORDS SUMMARY | 2024-09-20 14:53 | XMS_ITS | Encounter Summary ---
Author Organization [facility] Address [address] [place] [address] Phone Care Team Providers Care College Director Name Role Phone Elisha Dunaway DO Primary Care Provider [phone] Encounter Details Date Type Department Care Team (Late st Contact Info) Description 04/08/2011 Documentation EM Family Medicine [address] [place] [address] Family Medicine, Physician [address] [place], [place] [phone] Social History Tobacco Use Types Packs/Day Years [...] on filedocumented in this encounter Care Teams College Director Relationship Specialty Start Date End Date Elisha Dunaway DO 150 [facility] [place] [address] PCP - General 02/19/17 10/21/22 documented as of this encounter
--- OUTSIDE RECORDS SUMMARY | 2024-09-20 14:53 | XMS_ITS | Encounter Summary ---
Author Organization [facility] Address [address] [place] [address] Phone Care Team Providers Care Phlebotomist Name Role Phone Elisha Dunaway DO Primary Care Provider [phone] Encounter Details Date Type Department Care Team (Late st Contact Info) Description 02/25/2017 Conversion Encounter [facility] [address] [place], [place] [phone] Social History Tobacco Use Types Packs/Day Years [...] on filedocumented in this encounter Care Teams Phlebotomist Relationship Specialty Start Date End Date Elisha Dunaway DO 150 [place] [address] PCP - General 02/19/17 10/21/22 documented as of this encounter
== END 2024-09-20 13:10 | disposition home or self-care (01) ==
LOC: HO.HMCH 12:51
PROVIDERS: PCP Internal Medicine; Visit Provider Internal Medicine
DX: Z11.1 Encounter for screening for respiratory tuberculosis (principal)

== ENCOUNTER → 2024-09-20 12:50 | Outpatient (BNVA) | payer OTHER, SELFPAY | PROVIDERS: PCP Internal Medicine; Visit Provider Internal Medicine | DX: Z11.1 Encounter for screening for respiratory tuberculosis (principal) | CPT/HCPCS: 86580 ==

== ENCOUNTER → 2024-09-22 13:00 | Outpatient (BNVA) | payer OTHER, SELFPAY | PROVIDERS: PCP Internal Medicine; Visit Provider Internal Medicine ==

== ENCOUNTER 2024-10-03 12:12 | Outpatient (REF) | payer OTHER, SELFPAY ==
[2024-10-07 08:53] LABS: C. Trachomatis RNA TMA, Throat NOT DETECTED; N. gonorrhoeae RNA TMA, Throat NOT DETECTED
== END 2024-10-03 12:13 | disposition home or self-care (01) ==
LOC: HO.HMGCLNP 12:12
PROVIDERS: PCP Internal Medicine; Visit Provider Physician Assistant
DX: J02.9 Acute pharyngitis, unspecified (principal); Z13.9 Encounter for screening, unspecified
CPT/HCPCS: 87070; 87147; 87491; 87591; 87880; 99212

== ENCOUNTER 2024-10-03 12:12 | Outpatient (AMB) | payer OTHER, SELFPAY ==
--- NOTE | 2024-10-03 12:18 | MHC.OFFWIV ---
Intake Vital Signs 10/03/24 12:24 Height 5 ft 7 in Weight 125 lb BMI 19.6 BP 110/60 Blood Pressure Location Lt brachial Position Sitting Pulse 120 H Pulse Source Pulse Oximeter Temp 98.5 F Temp Source Oral Pulse Oximetry (%) 100 Oxygen Delivery Method Room Air Intake Visit Reasons: EP Sore throat Patient Tobacco Use Status: Current everyday Tobacco user Allergies amoxicillin [Amoxicillin] Allergy (Unknown, Verified 10/03/24 12:24) DIARRHEA Do you need a note to return to daycare/school/sports/work: Yes HPI HPI Comments History of Present Illness Details History of Present Illness - The patient is a 33-year-old female presenting with sore throat that includes white spots, along with headache and neck pain. Initial redness of the throat noted yesterday, with subsequent development of white spots. - The symptoms commenced yesterday, marking a sudden onset of throat discomfort and systemic symptoms. - The patient experiences relief from fever when taking Tylenol. - The patient reports no accompanying cough and describes a hot sensation experienced during the night. - Recent STI exposure risk due to non-monogamous sexual activity was disclosed, prompting a discussion of testing for sexually transmitted infections. Physical Exam General: Cooperative, healthy appearing, comfortable, no acute distress and well developed Orientation: Patient oriented x3 Limitations: No limitations Head: Normal to inspection Ears: Hearing grossly normal bilaterally, TMs normal bilaterally Nose: Normal External nose present Face and sinus: Normal facial exam Mouth: moist mucus membranes Throat: Posterior oropharynx with erythema and bilateral exudates Eyes: Appearance normal, both eyes and all related structures Neck: Normal visual inspection and Yes full ROM Respiratory: Normal respiratory effort and able to speak in complete sentences. Skin: No rashes or lesions noted Neuro: Patient oriented x3 Extremities: Normal to inspection [facility] Medical History Depression Smoking Surgical History No pertinent past surgical history Family History Maternal Aunt Ovarian cancer Maternal Grandmother Cancer Maternal Grandfather Diabetes Social History Housing: Apartment Alcohol intake: current Alcohol intake frequency: holidays/special occasions only Patient Tobacco Use Status: Current everyday Tobacco user Cigarettes Per Day: 4 e-Cigarette/Vaping Use: Never Used Second Hand Smoke Exposure: Yes service: No Current occupational status: employed 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 Gender identity: Female Female Reproductive History Menstrual Age of Menarche: 13 Review of Systems Const All systems reviewed & are unremarkable except as noted in HPI and below Physical Exam Vital Signs: Last Vital Signs Temp 98.5 F 10/03/24 12:24 Pulse 120 H 10/03/24 12:24 BP 110/60 10/03/24 12:24 Pulse Ox 100 10/03/24 12:24 Oxygen Delivery Method Room Air 10/03/24 12:24 BMI result Body Mass Index 19.6 Results AMB Rapid Strep AMB Rapid Strep Negative Last Edit by Tejas Virgen CMA on 10/03/24 12:44 Results Reviewed Results Reviewed: Laboratory Last Values Strep Scn Rapid Clinic Negative 10/03/24 12:29 Assessment & Plan Assessment & Plan (1) Pharyngitis: Code(s): J02.9 - Acute pharyngitis, unspecified Qualifiers: Pharyngitis/tonsillitis etiology: unspecified etiology Qualified Code(s): J02.9 - Acute pharyngitis, unspecified Plan: The patient will continue management with ibuprofen and Tylenol for pain and fever, respectively. Despite the negative rapid strep test for her sore throat with white spots, a full throat culture will be performed to exclude undetected bacterial causes. Considering her non-monogamous sexual activity, STI testing for gonorrhea and chlamydia is underway, with anticipated results tomorrow. She should adhere to the prescribed symptomatic care and will be informed of any required changes in treatment upon receiving laboratory results. Consent was obtained for further STI testing, and the patient is aware that potential positive results will guide subsequent antibiotic therapy if necessary. Patient was informed and verbally consented to the use of an ambient scribe for clinic note documentation during this visit. Orders: Orders AMB Rapid Strep Screen Today Z13.9 - Encounter for screening, unspecified Throat Culture Today J02.9 - Acute pharyngitis, unspecified CT NG by PCR Today J02.9 - Acute pharyngitis, unspecified Coding Level of Care Code Est Pt Level 3 (69055) Diagnoses Pharyngitis, unspecified etiology J02.9 Pharyngitis/tonsillitis etiology: unspecified etiology
[2024-10-03 12:24] VITALS: BP 110/60; PULSE 120; TEMP 36.9; O2SAT 100; BMI 19.6
--- OUTSIDE RECORDS SUMMARY | 2024-10-03 14:58 | XMS_ITS | Encounter Summary ---
Author Organization [facility] Address [address] [place] [address] Phone Care Team Providers Care Asset Card Clerk Name Role Phone Elisha Dunaway DO Primary Care Provider Encounter Details Date Type Department Care Team (Late st Contact Info) Description 02/25/2017 Conversion Encounter [facility] [place] 150 [place], [place] [phone] Social History Tobacco Use Types Packs/Day Years [...] on filedocumented in this encounter Care Teams Asset Card Clerk Relationship Specialty Start Date End Date Elisha Dunaway DO 150 [place] [address] PCP - General 02/19/17 10/21/22 documented as of this encounter
--- OUTSIDE RECORDS SUMMARY | 2024-10-03 14:58 | XMS_ITS | Encounter Summary ---
Author Organization [facility] Address [address] [place] [address] Phone Care Team Providers Care Flagstone Layer Name Role Phone Elisha Dunaway DO Primary Care Provider [phone] Encounter Details Date Type Department Care Team (Late st Contact Info) Description 10/03/2009 Documentation EM Family Medicine [address] [place] [address] Family Medicine, Physician [address] [place], [place] [phone] Social History Tobacco Use Types Packs/Day Years [...] on filedocumented in this encounter Care Teams Flagstone Layer Relationship Specialty Start Date End Date Elisha Dunaway DO 150 [facility] [place] [address] PCP - General 02/19/17 10/21/22 documented as of this encounter
--- OUTSIDE RECORDS SUMMARY | 2024-10-03 14:58 | XMS_ITS | Clinical Summary ---
Author Organization [facility] Address [address] [place] [address] Phone Care Team Providers Care Neurology Director Name Role Phone Unavailable Primary Care Provider [...] complete this topic Procedures * Due to [place] [employer] law, this organization might not be sharing sensitive test results. Procedure Name Priority Date/Time Associated Diagnosis Comments CHLAMYDIA AND GONORRHEA, AMPLIFIED Routine 04/08/2011 2:22 PM EDT from Last 3 Months or Most Recently Relevant to Health Maintenance Results * Due to [place] [employer] law, this organization might not be sharing sensitive test results. * Chlamydia and Gonorrhoea, Amplified (04/08/2011 2:22 PM EDT) Pathologist [facility] URINE GC AMP PROBE NEGATIVE [facility] Comment: NO NEISSERIA GONORRHOEAE RNA DETECTED IN THIS PATIENT'S SAMPLE. ? (REFERENCE RANGE/NORMAL VALUE: NOT DETECTED) ? NOTE: THIS TEST USES MILLER WOOD FLOUR MEDIATED AMPLIFICATION METHOD TO DETECT rRNA FROM [...] OTHER AGENTS. URINE CHLAMYDIA AMP PROBE NEGATIVE [facility] Comment: NO CHLAMYDIA TRACHOMATIS RNA DETECTED IN THIS PATIENT'S SAMPLE. ? (REFERENCE RANGE/NORMAL VALUE: NOT DETECTED) 04/08/2011 2:22 PM EDT Narrative [facility] - 04/08/2011 2:22 PM EDT URINE CHLAMYDIA GC AMP PROBE us Elisha Dunaway DO LAB MICROBIOLOGY - GENERAL ORDER JOHN Final Result [facility] [address] [place] [address], [place] from Last 3 Months or Most Recently Relevant to Health Maintenance
--- OUTSIDE RECORDS SUMMARY | 2024-10-03 14:58 | XMS_ITS | Encounter Summary ---
Author Organization [facility] Address [address] [place] [address] Phone Care Team Providers Care Body Mechanic Apprentice Name Role Phone Elisha Dunaway DO Primary Care Provider [phone] Encounter Details Date Type Department Care Team (Late st Contact Info) Description 04/08/2011 Documentation EM Family Medicine [address] [place] [address] Family Medicine, Physician [address] [place], [place] [phone] Social History Tobacco Use Types Packs/Day Years [...] on filedocumented in this encounter Care Teams Body Mechanic Apprentice Relationship Specialty Start Date End Date Elisha Dunaway DO 150 [facility] [place] [address] PCP - General 02/19/17 10/21/22 documented as of this encounter
--- OUTSIDE RECORDS SUMMARY | 2024-10-03 14:58 | XMS_ITS | Encounter Summary ---
Author Organization [facility] Address [address] [place] [address] Phone Care Team Providers Care Occupational Ther Name Role Phone Elisha Dunaway DO Primary Care Provider [phone] Encounter Details Date Type Department Care Team (Late st Contact Info) Description 04/08/2011 Documentation EM Family Medicine [address] [place] [address] Family Medicine, Physician [address] [place], [place] [phone] Social History Tobacco Use Types Packs/Day Years [...] on filedocumented in this encounter Care Teams Occupational Ther Relationship Specialty Start Date End Date Elisha Dunaway DO 150 [facility] [place] [address] PCP - General 02/19/17 10/21/22 documented as of this encounter
--- OUTSIDE RECORDS SUMMARY | 2024-10-03 14:58 | XMS_ITS | Encounter Summary ---
Author Organization [facility] Address [address] [place] [address] Phone Care Team Providers Care Marine Mammal Trainer Name Role Phone Elisha Dunaway DO Primary Care Provider Encounter Details Date Type Department Care Team (Late st Contact Info) Description 04/08/2011 Documentation EM Family Medicine [address] [place] [address] Family Medicine, Physician [address] [place], [place] [phone] Social History Tobacco Use Types Packs/Day Years [...] on filedocumented in this encounter Care Teams Marine Mammal Trainer Relationship Specialty Start Date End Date Elisha Dunaway DO 150 [facility] [place] [address] PCP - General 02/19/17 10/21/22 documented as of this encounter
--- OUTSIDE RECORDS SUMMARY | 2024-10-03 14:58 | XMS_ITS | Encounter Summary ---
Author Organization [facility] Address [address] [place] [address] Phone Care Team Providers Care Food Safety Technician Name Role Phone Elisha Dunaway DO Primary Care Provider Encounter Details Date Type Department Care Team (Late st Contact Info) Description 05/14/2011 Documentation EM Family Medicine [address] [place] [address] Family Medicine, Physician [address] [place], [place] [phone] Social History Tobacco Use Types Packs/Day Years [...] on filedocumented in this encounter Care Teams Food Safety Technician Relationship Specialty Start Date End Date Elisha Dunaway DO 150 [facility] [place] [address] PCP - General 02/19/17 10/21/22 documented as of this encounter
--- OUTSIDE RECORDS SUMMARY | 2024-10-03 14:58 | XMS_ITS | Encounter Summary ---
Author Organization [facility] Address [address] [place] [address] Phone Care Team Providers Care District Leader Name Role Phone Elisha Dunaway DO Primary Care Provider [phone] Encounter Details Date Type Department Care Team (Late st Contact Info) Description 04/08/2011 Documentation EM Family Medicine [address] [place] [address] Family Medicine, Physician [address] [place], [place] [phone] Social History Tobacco Use Types Packs/Day Years [...] on filedocumented in this encounter Care Teams District Leader Relationship Specialty Start Date End Date Elisha Dunaway DO 150 [facility] [place] [address] PCP - General 02/19/17 10/21/22 documented as of this encounter
== END 2024-10-03 12:58 | disposition home or self-care (01) ==
PROVIDERS: PCP Internal Medicine; Visit Provider Physician Assistant
DX: J02.9 Acute pharyngitis, unspecified (principal); Z13.9 Encounter for screening, unspecified

== ENCOUNTER 2024-10-04 08:11 | Outpatient (REF) | payer OTHER, SELFPAY | END 2024-10-04 08:12 | disposition home or self-care (01) | LOC: HO.LAB 08:11 | PROVIDERS: Visit Provider Physician Assistant | DX: Z13.89 Encounter for screening for other disorder (principal) ==

== ENCOUNTER 2024-12-31 20:43 | Emergency (ER) | payer OTHER, SELFPAY ==
[2024-12-31 20:49] VITALS: BP 129/82; PULSE 91; RESP 20; TEMP 37.2; O2SAT 98; BMI 19.6
--- NOTE | 2024-12-31 20:57 | ED_ITS ---
HPI - General Adult General Chief complaint: General Medical Stated complaint: bug in her ear Time Seen by Provider: 12/31/24 20:56 Source: patient Mode of arrival: ambulatory Limitations: no limitations History of Present Illness ED Provider: Radhames Hale [facility] narrative: 34 yold female healthy presents to the ED for bug flying into her right ear while she was on car break. patient felt bug flying in her ear so she put water in her ear and came to the ED to be evalauted for bug in her ear Related Data Previous Rx's ?Medication ?Instructions ?Recorded ibuprofen 600 mg tablet 600 mg PO Q8H PRN pain #20 t abs 05/17/24 Allergies Allergy/AdvReac Type Severity Reaction Status Date / Time amoxicillin (Amoxicillin) Allergy Unknown DIARRHEA Verified 12/31/24 20:51 Review of Systems Review of Systems: bug in right ear Yes all other systems are reviewed and are negative [facility] Past Medical History Medical History Depression Smoking Surgical History No pertinent past surgical history Family History Family History Maternal Aunt Ovarian cancer Maternal Grandmother Cancer Maternal Grandfather Diabetes Social History Social History Housing: Apartment Alcohol intake: current Alcohol intake frequency: holidays/special occasions only Patient Tobacco Use Status: Current everyday Tobacco user Cigarettes Per Day: 4 e-Cigarette/Vaping Use: Never Used Second Hand Smoke Exposure: Yes Advance Directives: No Advance Directives Information Provided: No Do you have a plan to hurt others: No Plan service: No Current occupational status: employed 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 Gender identity: Female Physical Exam ED Vital Signs: Vital Signs - 24 hr 12/31/24 20:49 12/31/24 21:22 Temperature 98.9 F 98.9 F Pulse Rate 91 91 Respiratory Rate 20 20 Blood Pressure 129/82 129/82 Pulse Oximetry 98 98 Oxygen Delivery Method Room Air Room Air BMI result Body Mass Index 19.6 Const General: cooperative, healthy appearing, comfortable, no acute distress, well developed, alert, awake and Physically active Orientation/consciousness: patient oriented x3 HENMT Head: Yes normal to inspection, Yes No palpable skull fracture present, Yes normocephalic and Yes atraumatic Ears: hearing grossly normal bilaterally, external ears normal, TM's normal bilaterally, TM normal on the right, TM normal on the left, EAC's normal, mastoids normal and no periauricular adenopathy Throat: Yes posterior oropharynx normal, Yes tonsils normal and Yes uvula midline Eyes General: appearance normal, both eyes and all related structures Neck Neck: Yes normal visual inspection, Yes full ROM, Yes no lymphadenopathy, Yes no meningeal signs, Yes trachea midline, Yes supple, No anterior neck swelling and No tender Chest Chest palpation & inspection: normal inspection of the chest and normal palpation of entire chest wall Resp Effort & Inspection: normal respiratory effort and able to speak in complete sentences Auscultation: clear to auscultation bilaterally Cardio Jugular venous distension: no JVD Heart sounds: S1 normal heart sound present and S2 normal heart sound present GI Inspection: Yes normal to inspection Palpation (GI): Soft to palpation, not firm, nontender, no guarding and not rigid General: Yes no CVA tenderness Back/Spine/Pelvis Back: no CVA tenderness and No back tenderness Skin General skin exam: no rashes or lesions noted, elasticity normal and turgor normal Neuro General: patient oriented x3, gait normal, tone normal, moves all extremities, Normal light touch and pain sensation, no meningeal signs, no focal motor deficits and CN's II-XI intact bilaterally Extrem General: Yes normal to inspection, Yes full ROM and Yes capillary refill normal Psych Appearance: grossly normal, well kempt and not disheveled Medical Decision Making Medical Decision Making MDM Narrative: 34 yold female presents to the ED due to bug flying into her ear and is conc erned that its still in her ear and it was moving in ear earlier. Patient states she flushed her ears with water and ran to the ER. Physical exam negative for any bugs in the ear. Patient no longer hysterical crying. Patient feels better. Negative for signs of tympanic membrane perforation or otitis media/externa. Negative for signs of mastoiditis. Once again no bug or foreign body in the ear. Patient walked out and left the ER before receiving discharge papers.patient explained worrisome signs and inforemd to return to the ED immeidatley. Differential Diagnosis Differential Diagnoses: The differential diagnosis associated with the presentation includes (ear bug/foreign body. otitis media/externa) Admission/Observation Consideration of admission/observation: Escalation of care including admission/observation considered Independent Historian Clinical information obtained from an independent historian. History obtained from or confirmed by: Other (patient) Prescription Management I considered prescription management with: Pain Medication Discharge Plan Discharge Clinical Impression: Foreign body in ear Patient Disposition: Home, Self-Care Instructions: Ear Foreign Body (ED) Additional Instructions: There is no bug or foreign body in your right ear. Recommend follow up with primary care provider. Return to the ED immediately for any ear pain, redness, swelling, ear discharge, dizziness, headache, chest pain or shortness of breath. Prescriptions: No Action Recombivax HB (PF) 10 mcg/mL suspension 1.0 ml IM ONCE Qty: 1 0RF ibuprofen 600 mg tablet 600 mg PO Q8H PRN (Reason: pain) Qty: 20 0RF Interventions: ED Discharge Assessment Last Done: 12/31/24 21:22 Discharge Date/Time: 12/31/24 21:23 Print Language: Puerto Rican
--- OUTSIDE RECORDS SUMMARY | 2024-12-31 21:18 | XMS_ITS | Encounter Summary ---
Author Organization [facility] Address [address] [place] [address] Phone Care Team Providers Care Top Lift Scourer Name Role Phone Elisha Dunaway DO Primary Care Provider [phone] Encounter Details Date Type Department Care Team (Late st Contact Info) Description 04/08/2011 Documentation EM Family Medicine [address] [place] [address] Family Medicine, Physician [address] [place], [place] [id number] Social History Tobacco Use Types Packs/Day Years [...] on filedocumented in this encounter Care Teams Top Lift Scourer Relationship Specialty Start Date End Date Elisha Dunaway DO [address] [facility] [address] [place] Friend [id number] PCP - General 02/19/17 10/21/22 documented as of this encounter
[2024-12-31 21:22] VITALS: BP 129/82; PULSE 91; RESP 20; TEMP 37.2; O2SAT 98
== END 2024-12-31 21:23 | disposition home or self-care (01) ==
PROVIDERS: Emergency Provider Emergency Medicine Emergency Medical Services; PCP Internal Medicine
DX: T16.1XXA Foreign body in right ear, initial encounter (principal); W44.9XXA Unspecified foreign body entering into or through a natural orifice, initial encounter; Y93.9 Activity, unspecified; Y92.9 Unspecified place or not applicable; Y99.8 Other external cause status
CPT/HCPCS: 99282

== ENCOUNTER 2025-01-29 15:00 | Outpatient (AMB) | payer OTHER, SELFPAY ==
--- NOTE | 2025-01-29 15:07 | A.OFFPC_ITS ---
Vital Signs 01/29/25 15:08 Height 5 ft 6 in Weight 122 lb BMI 19.7 BP 108/60 Blood Pressure Location Lt brachial Position Sitting Intake Visit Reasons: Re Establish Pt PE Intake Note: Patient here for a physical exam Floorleader Required: No Accompanied by: Self / Same As Patient Allergies amoxicillin (Amoxicillin) Allergy (Unknown, Verified 01/29/25 15:43) DIARRHEA Medication List - Last Reconciled 01/29/25 by Gena Whyte MD No Known Home Meds Tobacco use date assessed: 01/29/25 Dental Screening Dental Screen Date: 01/29/25 Did you have a dental visit in the last 12 months?: No Did you have a dental problem in the last 6 months where you did not have access to dental care?: No Was dental information given to patient?: Patient has dentist HPI HPI Comments History of Present Illness Details The patient is a 34-year-old female presenting for a physical examination and preventative care. She reports a history of allergic reaction to amoxicillin, which causes diarrhea. There is a family history of hypertension in her mother and thyroid disorder in her father. The patient mentions a past diagnosis of non-cancerous ovarian cysts, which were identified approximately ten years ago. She expresses interest in obtaining a follow-up scan to assess the current status of the cysts. The patient smokes approximately four cigarettes a day and expresses a readiness to quit. She has previously quit smoking for five years using hypnosis and is considering using eEye as a cessation aid. [facility] Medical History (Updated 01/29/25 @ 16:56 by Gena Whyte MD) Smoking Depression Surgical History No pertinent past surgical history Family History (Updated 01/29/25 @ 15:48 by Gena Whyte MD) Maternal Aunt Ovarian cancer Maternal Grandmother Cancer Maternal Grandfather Diabetes Mother Essential hypertension Father Thyroid disease Social History Housing: Apartment Alcohol intake: current Alcohol intake frequency: holidays/special occasions only Patient Tobacco Use Status: Current everyday Tobacco user Tobacco use type: Cigarette Cigarettes Per Day: 4 e-Cigarette/Vaping Use: Never Used Second Hand Smoke Exposure: Yes service: No Current occupational status: employed 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 1. Little interest or pleasure in doing things: not at all 2. Feeling down, depressed, or hopeless: not at all 3. Trouble falling or staying asleep, or sleeping too much: not at all 4. Feeling tired or having little energy: not at all 5. Poor appetite or overeating: not at all 6. Feeling bad about yourself - or that you are a failure or have let yourself or your family down: not at all 7. Trouble concentrating on things, such as reading the newspaper or watching television: not at all 8. Moving or speaking so slowly that other people could have noticed. Or the opposite - being so fidgety or restless that you have been moving around a lot more than usual: not at all 9. Thoughts that you would be better off or of hurting yourself in some way: not at all Total score: 0 Depression Screening Interpretation: Negative Depression Screening Done: Yes 75291 - PHQ-9 Billing: Yes Source: Developed by Drs. Dixon Beth, Perla Miguel, Hardik Amaro and colleagues, with an educational arthur from [employer]. Thrive Questionnaire Date Thrive assessed: 01/29/25 I am a: Patient What is your living situation today?: I have a steady place to live Within the past 12 months, did the food you bought not last and you didn't have the money to get more?: Never true Within the past 12 months, did you worry whether your food would run out before you got money to buy more?: Never true Do you have trouble paying for medicines?: No Do you have trouble getting transportation to medical appointments?: No Do you have trouble paying your heating and electricity bill?: No Do you have trouble taking care of your child, family member or friend?: No Do you have trouble with day-to-day activities such as bathing, preparing meals, shopping, managing finances, etc.?: No Are you currently unemployed and looking for a job?: No Are you interested in more education?: Yes Please select the resources that you would like help with: None Currently or been in a relationship where the following occur: No concerns reported THRIVE Score: 0 AUDIT C Alcohol Use Questionnaire (AUDIT-C) 1. How often do you have a drink containing alcohol?: 2-4 times a month 2. How many drinks containing alcohol do you have on a typical day when you are drinking?: 3 or 4 3. How often do you have six or more drinks on one occasion?: Never Total Score: 3 PABLO-7 AMB Questionnaire PABLO-7 Date PABLO - 7 assessed: 01/29/25 Feeling nervous, anxious, or on edge: 0 = Not at all Not being able to stop or control worryin = Not at all Worrying too much about different things: 0 = Not at all Trouble relaxin = Not at all Being so restless that it is hard to sit still: 0 = Not at all Becoming easily annoyed or irritable: 0 = Not at all Feeling afraid as if something awful might happen: 0 = Not at all Total PABLO-7 score (0-4 normal; 5-9 mild; 10-14 moderate; 15-21 severe): 0 Source: Developed by Drs. Dixon Beth, Perla Miguel, Hardik Amaro and colleagues, with an educational arthur from [employer]. PABLO-7 Assessment Billing PABLO-7 Assessment Tool: PABLO-7 Assessment 93566 Review of Systems Const All systems reviewed & are unremarkable except as noted in HPI and below Card Denies chest pain at rest, Denies chest pain with activity, Denies edema, Denies irregular heart rhythm, Denies claudication, Denies dyspnea, Denies dyspnea on exertion, Denies orthopnea, Denies paroxysmal nocturnal dyspnea and Denies slow heart rate Resp Denies cough, Denies dyspnea and Denies dyspnea on exertion GI Denies abdominal pain, Denies change in bowel habits, Denies excessive flatus, Denies nausea and Denies vomiting Denies urinary incontinence, Denies urinary hesitancy and Denies urinary urgency Musc Denies abnormal gait, Denies atrophy, Denies deformity and Denies limited range of motion Skin/Breast Denies bleeding lesions, Denies changing lesions and Denies rash Neuro Denies abnormal gait and Denies lack of coordination Physical exam (Primary Care) Vital Signs: Last Vital Signs BP 108/60 01/29/25 15:08 BMI result Body Mass Index 19.7 Tobacco/Smoking Status: Tobacco use Status Tobacco use date assessed 01/29/25 01/29/25 15:15 Patient Tobacco Use Status Current everyday Tobacco 01/29/25 15:15 Tobacco use type Cigarette 01/29/25 15:15 e-Cigarette/Vaping Use Never Used 01/29/25 15:15 Are you ready to quit: Yes Tobacco cessation counseling provided: Yes Items discussed: Nicotine replacement and QuitWorks Relapse Prevention: discussed the importance of a supportive environment, discussed extending NRT, discussed negative mood or depression after quitting, weight gain after smoking is common and discussed dietary, exercise and/or lifestyle changes Number of minutes spent counselin CPT code: 05233 - 4-10 Minutes PHQ-9: PHQ-9 Score PHQ-9: Total score 0 01/29/25 15:46 Depression Screening Interpretation: Negative Thrive Assessment: Date of Thrive Assessment Date Thrive assessed 01/29/25 01/29/25 15:15 Currently or been in a relationship where the following occur: No concerns reported HENIA Head: Yes normal to inspection, Yes normocephalic and Yes atraumatic Ears: external ears normal Eyes General: appearance normal, both eyes and all related structures Eyelids: Yes eyelids normal Conjunctivae: conjunctivae normal Neck Neck: Yes normal visual inspection and Yes supple Resp Effort & Inspection: normal respiratory effort Auscultation: clear to auscultation bilaterally Cardio Jugular venous distension: no JVD Rate: regular rate Rhythm: regular rhythm Heart sounds: S1 normal heart sound present and S2 normal heart sound present GI Inspection: Yes normal to inspection Palpation (GI): Soft to palpation and nontender Auscultation: normal bowel sounds Skin General skin exam: no rashes or lesions noted Neuro General: no focal motor deficits Extrem General: Yes full ROM Psych Appearance: grossly normal Coding Level of Care Code Est Pt Prev Care 18-39y(12470) Diagnoses Physical exam Z00.00 Additional Codes PABLO-7 Assessment Billing - PABLO-7 Assessment Tool: PABLO-7 Assessment 69270 ([id number]) PHQ-9 - 79558 - PHQ-9 Billing: Yes ([id number]) Vital Signs *Quality* - CPT code: 95969 - 4-10 Minutes ([id number]) Time Spent (min) 31 Assessment & Plan Assessment & Plan (1) Physical exam: Code(s): Z00.00 - Encounter for general adult medical examination without abnormal findings Category: Medical Plan The patient is advised to follow up with an MANAGER FLIGHT for a rescan of her ovarian cysts to ensure they have resolved or remain non-cancerous. Smoking cessation is encouraged, with recommendations to consider QuitWorks and hypnosis as potential aids. Patient was informed and verbally consented to the use of an ambient scribe for clinic note documentation during this visit.
[2025-01-29 15:08] VITALS: BP 108/60; BMI 19.7
--- OUTSIDE RECORDS SUMMARY | 2025-01-29 15:44 | XMS_ITS | Encounter Summary ---
Author Organization [facility] Address [address] [place] [address] Phone Care Team Providers Care Sample Card Maker Name Role Phone Elisha Dunaway DO Primary Care Provider [phone] Encounter Details Date Type Department Care Team (Late st Contact Info) Description 04/08/2011 Documentation EM Family Medicine [address] [place] [address] Family Medicine, Physician [address] [place], [place] [phone] Social History Tobacco Use Types Packs/Day Years [...] on filedocumented in this encounter Care Teams Sample Card Maker Relationship Specialty Start Date End Date Elisha Dunaway DO [address] [facility] ANT Friend [id number] PCP - General 02/19/17 10/21/22 documented as of this encounter
== END 2025-01-29 15:52 | disposition home or self-care (01) ==
LOC: HO.HMCH 15:01
PROVIDERS: PCP Internal Medicine; Visit Provider Internal Medicine
DX: Z00.00 Encounter for general adult medical examination without abnormal findings (principal)

== ENCOUNTER → 2025-01-29 15:00 | Outpatient (BNVA) | payer OTHER, SELFPAY | PROVIDERS: PCP Internal Medicine; Visit Provider Internal Medicine | DX: Z00.00 Encounter for general adult medical examination without abnormal findings (principal); N83.209 Unspecified ovarian cyst, unspecified side; F17.210 Nicotine dependence, cigarettes, uncomplicated | CPT/HCPCS: 96127; 99395 ==